=== PATIENT | female | born 1980 | race American Indian/Alaskan Native ===

== ENCOUNTER 2024-12-20 01:33 | Emergency (ER) | payer MEDICAID, SELFPAY ==
[2024-12-20 01:36] VITALS: BMI 25.7
[2024-12-20 01:51] VITALS: BP 152/103; PULSE 98; RESP 18; TEMP 36.8; O2SAT 98
--- NOTE | 2024-12-20 02:07 | XR_ITS ---
Examination: Forearm, left, 2 views. Technique: Forearm, AP, lateral 2 views Date and time of exam: December 20 at 0108 hrs. Indications: History forearm fracture 2 weeks ago. Findings: Partial healing fracture midshaft ulna with satisfactory alignment Impression: Partial healing fracture ulna with satisfactory alignment
--- NOTE | 2024-12-20 02:17 | EDNOTE_ITS ---
Upper Extremity Injury RME/HPI General Chief Complaint: Extremity Injury, Upper Stated Complaint: recheck on L arm fx Time Seen by Provider: 12/20/24 02:06 Arrival date/time: 12/20/24 01:33 44F with history of homelessness presents to ED wanting to ED wanting repeat XR of L forearm. Patient states 2 weeks ago she was at [facility] for initial injury. [facility] stated she had a fx, was given a splint, and was told to see ortho for cast. Patient follow-up with PCP who stated she was fine, and didn't need a cast. Limitations: no limitations Related Data Previous Rx's ?Medication ?Instructions ?Recorded naproxen 500 mg tablet 500 mg PO BID PRN pain #30 t abs 10/08/23 Allergies Allergy/AdvReac Type Severity Reaction Status Date / Time codeine Allergy Verified 12/20/24 01:41 Review of Systems Review of Systems Systems Reviewed: All systems reviewed, normal except as documented Constitutional Constitutional: Reports system reviewed and no additional complaints, except as documented, Denies fever(s) and Denies headache(s) ENT Ears, Nose, Mouth, and Throat: Denies disequilibrium and Denies headache(s) Cardiovascular Cardiovascular: Reports system reviewed and no additional complaints, except as documented, Denies chest pain and Denies dyspnea Respiratory Respiratory: Reports system reviewed and no additional complaints, except as documented, Denies cough and Denies dyspnea Gastrointestinal Gastrointestinal: Reports system reviewed and no additional complaints, except as documented, Denies abdominal pain, Denies nausea and Denies vomiting Musculoskeletal Musculoskeletal: Reports as per HPI and Reports arthralgias Neurologic Neurologic: Reports system reviewed and no additional complaints, except as documented, Denies confusion, Denies disequilibrium and Denies headache(s) Psychiatric Psychiatric: Denies confusion Past Medical History Social History SMOKING STATUS: Current every day smoker ED Exam General Limitations: Present no limitations General appearance: Present alert and in no apparent distress Head Head exam: Present atraumatic Eye Eye exam: Present normal appearance, PERRL and EOMI ENT ENT exam: Present normal exam, normal oropharynx and mucous membranes moist Neck Neck exam: Present normal inspection, full ROM and trachea midline Chest Chest inspection: Present normal inspection and symmetric chest wall rise Respiratory Respiratory exam: Present normal lung sounds bilaterally Cardiovascular Cardiovascular exam: Present regular rate, normal rhythm and normal heart sounds Abdominal Exam Abdominal exam: Present soft and normal bowel sounds Extremities Exam Extremities exam: Present full ROM Expanded Upper Extremity Exam Forearm/Wrist exam: Present full ROM (L) and tenderness Back Exam Back exam: Present normal inspection and full ROM Neurological Exam Neurological exam: Present alert, oriented X3 and CN II-XII intact Psychiatric Psychiatric exam: Present normal affect and normal mood Skin Skin exam: Present warm, dry, intact and normal color Course Quality Measures none Orders Category Date Time Status Splint / Immobilizer STAT Care 12/20/24 02:23 Active XR forearm LT 2V Stat Exams 12/20/24 02:07 Taken Vital Signs Vital signs: Vital Signs Temperature 98.2 F 12/20/24 01:51 Pulse Rate 98 12/20/24 01:51 Respiratory Rate 18 12/20/24 01:51 Blood Pressure 152/103 H 12/20/24 01:51 Pulse Oximetry (%) 98 12/20/24 01:51 Oxygen Delivery Method Room Air 12/20/24 01:51 O2 at 98% on RA and WNLs Extremity Injury MDM Narrative MDM Narrative:: 44F with history of homelessness presents to ED wanting to ED wanting repeat XR of L forearm. Patient states 2 weeks ago she was at [facility] for initial injury. [facility] stated she had a fx, was given a splint, and was told to see ortho for cast. Patient follow-up with PCP who stated she was fine, and didn't need a cast. Physical exam reveals L forearm tenderness and mild deformity. Patient is afebrile, calm, and alert. XR reveals forearm fx about longterm through remodeling process. Given new splint/sling. Patient data External records reviewed:: [facility] previous records Clinical information provided by:: patient Social determinants that could affect healthcare access:: housing Patient has the following chronic illnesses:: none How is presenting disease/condition affected by chronic disease/condition?: no chronic disease Evaluation data The following diagnostics were reviewed and interpreted by me:: radiology exam(s) Lab and/or radiology exams considered but not ordered:: ordered Interpretation Summary: above Medications / Prescriptions Medications or Prescriptions considered but not ordered:: not ordered Medication administrations:: n/a Consultations Consultation(s) initiated? (list below): No Diagnosis Upper Extremity Injury Differential Diagnosis: sprain and strain of wrist, fracture of wrist, finger sprain, dislocation of finger, Colles' fracture, fracture of hand and other (forearm fx) Most likely diagnosis given after review of the tests above:: forearm fx Admission Indicated Admission indicated?: not indicated Admission Request Was there a request for admission?: No Disposition Plan Disposition Plan: Discharge Discharge Attestation Discharge Attestation: The patient and all family members were given an opportunity to ask questions and understood the discharge instructions. Discharge instructions specifically effects, indications for sooner follow up or return to the emergency department, and the expected course of current diagnosis. Patient condition: Stable Discharge Plan Plan Patient Disposition: HOME (Self Care) Disposition Comment: Stable Prescriptions/Referrals Prescriptions/Med Rec: No Action naproxen 500 mg tablet 500 mg PO BID PRN (Reason: pain) Qty: 30 0RF Referrals: No Primary/Family,Physician [Primary Care Provider] - In 1 week Problem List Clinical Impression: Forearm fracture Patient/Caregiver Discharge Instructions Education Materials: ED Fracture, Upper Extremity Additional Instructions: Please follow-up with PCP within 24-48 hours and return immediately if symptoms worsen. Print Language: Kinyarwanda Stand Alone Forms: Patient Portal Info Letter ROGER/GERHARD Supervising Physician AMNA Supervising Physician: Dr. Daley
== END 2024-12-20 03:20 | disposition home or self-care (01) ==
PROVIDERS: Emergency Provider Emergency Medicine
DX: S52.202A Unspecified fracture of shaft of left ulna, initial encounter for closed fracture (principal); X58.XXXA Exposure to other specified factors, initial encounter; Z59.00 Homelessness unspecified
CPT/HCPCS: 29126; 73090; 99283

== ENCOUNTER 2025-01-26 11:12 | Emergency (ER) | payer MEDICAID, SELFPAY ==
--- NOTE | 2025-01-26 11:41 | PC.NURSE ---
PT SEEN WALKING TO BUS STOP A[address] THE [address]. PT ELOPED.
== END 2025-01-26 11:41 | disposition left against medical advice (07) ==
LOC: SERX 12:42
PROVIDERS: Emergency Provider Family Medicine
DX: Z53.21 Procedure and treatment not carried out due to patient leaving prior to being seen by health care provider (principal)

== ENCOUNTER 2025-06-11 19:43 | Emergency (ER) | payer MEDICAID, SELFPAY ==
[2025-06-11 19:46] VITALS: BP 131/96; PULSE 104; RESP 18; TEMP 36.8; O2SAT 97; BMI 29.5
--- NOTE | 2025-06-11 19:53 | PD.EDMEDCL ---
ED Medical Clearance RME/HPI General Stated complaint: MEDICAL CLEARANCE Time Seen by Provider: 06/11/25 19:52 Arrival date/time: 06/11/25 19:43 RME / HPI RME / HPI Narrative: 45-year-old female patient was brought to the emergency room from half-way for medical clearance regarding incarceration. Patient was brought in because patient is claiming that she is she is doing checkup in [facility] according to her. She denies any other complaints. Related Information Previous Rx's ?Medication ?Instructions ?Recorded naproxen 500 mg tablet 500 mg PO BID PRN pain #30 tabs 10/08/23 Allergies Allergy/AdvReac Type Severity Reaction Status Date / Time codeine Allergy Verified 01/26/25 11:15 Review of Systems Review of Systems ROS Unobtainable: unobtainable due to medical condition ED Exam Narrative Physical exam: VITAL SIGNS: Reviewed. GENERAL APPEARANCE: Alert and interactive, follows commands, no acute distress, HEAD AND FACE: Non-traumatic. ENT: PERRL, pink conjunctivitis, eyelid no trauma, Mucous membrane moist. NECK: Supple, nontender, no nuchal rigidity. CHEST: No tenderness, no crepitus, no paradoxical movement, no retractions. LUNGS: Clear, well ventilated, symmetric, no rales, no wheezing, no ronchi, no stridor, good breath sounds bilaterally. HEART: Regular rate, regular rhythm, no murmur, no gallops. ABDOMEN: Soft, positive bowel sounds, nondistended, no guarding, nontender, no rebound, no masses, RECTAL: Deferred. GENITAL: Deferred. NEUROLOGICAL: Gross motor function intact sensory function intact, Appropriate for age. MUSCULOSKELETAL: low back nontender, full range of motion. EXTREMITIES: Nontender, full range of motion. SKIN: Color pink, dry, no rash, no lacerations, no abrasions, no contusions. LYMPHATICS: Deferred. Course Quality Measures none Orders Category Date Time Status EKG (ED ONLY) *Do not use* NOW Care 06/11/25 19:53 Active EKG (ED Only) Stat Exams 06/11/25 19:53 Ordered HCG Qualitative,Urine Stat Lab 06/11/25 19:53 Ordered Vital Signs Vital signs: Vital Signs Temperature 98.2 F 06/11/25 19:46 Pulse Rate 104 H 06/11/25 19:46 Respiratory Rate 18 06/11/25 19:46 Blood Pressure 131/96 H 06/11/25 19:46 Pulse Oximetry (%) 97 06/11/25 19:46 Oxygen Delivery Method Room Air 06/11/25 19:46 Medical Clearance MDM Narrative MDM Narrative:: 45-year-old female patient was brought to the emergency room from half-way for medical clearance regarding incarceration. Patient was brought in because patient is claiming that she is she is doing checkup in [facility] according to her. She denies any other complaints. Plan of care discussed with the patient including test, EKG, however patient told me that she does not want any test. Patient refused further imaging or test. Patient is medically cleared for incarceration Patient data External records reviewed:: None Clinical information provided by:: patient and law enforcement Social determinants that could affect healthcare access:: none Patient has the following chronic illnesses:: None How is presenting disease/condition affected by chronic disease/condition?: no chronic disease Evaluation data The following diagnostics were reviewed and interpreted by me:: lab results and EKG tracing(s) Lab and/or radiology exams considered but not ordered:: None Interpretation Summary: Patient refused Medications / Prescriptions Medications or Prescriptions considered but not ordered:: None Medication administrations:: None Consultations Consultation(s) initiated? (list below): No Diagnosis Medical Clearance Differential Diagnosis: other (Medical clearance for incarceration) Most likely diagnosis given after review of the tests above:: Medical clearance for incarceration, patient refused test Admission Indicated Admission indicated?: not indicated Admission Request Was there a request for admission?: No Disposition Plan Disposition Plan: Discharge Discharge Attestation Discharge Attestation: Patient condition: Stable Discharge Plan Plan Patient Disposition: Retirement/Court/Law Prescriptions/Referrals Prescriptions/Med Rec: No Action naproxen 500 mg tablet 500 mg PO BID PRN (Reason: pain) Qty: 30 0RF Problem List Clinical Impression: Medical clearance for incarceration Patient/Caregiver Discharge Instructions Education Materials: Reducing Your Health Risks ... Additional Instructions: Thank you for the opportunity for serving you today. You are stable for discharged . You are advised to: Follow-up with your PCP in 1 to 2 days once you get out of half-way Return to ED for worsening of symptoms Increase oral fluids Print Language: Armenian ROGER/GERHARD Supervising Physician AMNA Supervising Physician: MD Catracho
--- NOTE | 2025-06-11 20:03 | PC.NURSE ---
PT IS REFUSING EKG, LAB WORK AND URINE SAMPLE. PROVIDER MADE AWARE.
--- NOTE | 2025-06-11 20:09 | PC.NURSE ---
PT REFUSED TO ALL MEDICAL TREATMENT, LABS, EKG AND REPEAT VITALS.
== END 2025-06-11 20:10 ==
PROVIDERS: Emergency Provider Emergency Medicine
DX: Z02.89 Encounter for other administrative examinations (principal); Z65.3 Problems related to other legal circumstances; Z53.29 Procedure and treatment not carried out because of patient's decision for other reasons; Z88.5 Allergy status to narcotic agent
CPT/HCPCS: 81025; 99282